=== PATIENT | female | born 2000 | race Caucasian/White ===

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

== ENCOUNTER → 2020-04-15 | Emergency (ER) | payer SELFPAY ==
[~2020-04-15] MED LIST: BENZOCAINE/MENTHOL LOZNGE 18'S BOX. PO PRN; LIDOCAINE 2% VISCOUS 15 ML SOLUTION. ONE; LORA-254 PO; LORA0.5T PO
--- NOTE | 2020-04-15 15:47 | RAD ---
EXAM: Ultrasound OB Greater than 14 weeks INDICATION: Cramping. No bleeding. TECHNIQUE: Real-time obstetrical ultrasound was performed with permanent freeze-frame documentation. COMPARISON: None. FINDINGS: POSITION: Breech HEART RATE: 162 bpm KELBY: Normal PLACENTA: Total previa. CERVICAL LENGTH: 3.2 cm MATERNAL UTERUS: Unremarkable. MATERNAL ADNEXA: Unremarkable. AGE/DATES: Gestational Age by LMP: 16 weeks 3 days Gestation Age by US: 15 weeks 0 days EDC by LMP: 09/27/2020 EDC by US: 10/07/2020 WEIGHT: 106 grams PERCENTILE WEIGHT: This is at the approximate 5th percentile BIOMETRIC PARAMETERS: BPD: 2.9 cm corresponding with 15 weeks 1 day HC: 11.0 cm corresponding with 15 weeks 2 days AC: 8.5 cm corresponding with 14 weeks 5 days FL: 1.6 cm corresponding with 14 weeks 4 days IMPRESSION: Normal OB ultrasound demonstrating a single viable fetus in breech position with total placenta previ a. Estimated gestational age of 15 weeks 0 days and EDC of 10/07/2020. Discussed with Dr. Aguayo by telephone at 8:34 AM on 04/15/2020 Electronically signed by: Avis Saunders MD (04/15/2020 3:45 PM) [id number]
--- NOTE | 2020-04-15 20:07 | PHYS DOC ---
Past History Past Medical History: Anxiety, Depression, Fibromyalgia Past Surgical History: Tonsillectomy Smoking: Less than 1pk/day Alcohol Use: None Drug Use: Marijuana General Adult EDM: Chief Complaint: DENTAL PROBLEM HPI: HPI: Patient is a [age] year old [sex] who presents with [] Current Medications: Current Meds: Current Medications Medications (Trade) Dose Ordered Sig/[facility] Start Time Stop Time Status Last Admin Dose Admin Lidocaine HCl (Viscous Lidocaine) 15 ml STK-MED ONCE 04/15/20 09:03 04/15/20 09:04 DC Throat Lozenges (Cepacol Sore Throat Lozenge) 1 peg PRN Q2HR PRN 04/15/20 09:30 Allergies: Allergies: Allergies Coded Allergies Type Severity Reaction Last Updated Verified No Known Drug Allergies 08/15/17 No Current Patient Data: Labs: Laboratory Tests Test 04/15/20 17:38 Prothrombin Time 10.0 SEC (9.4-11.4) Prothrombin Time INR 1.0 (0.9-1.1) Activated Partial Thromboplast Time 25 SEC (23-33) EKG: EKG: [] Radiology/Procedures: Radiology/Procedures: [] Heart Score: Risk Factors: Risk Factors: DM, Current or recent (<one month) smoker, HTN, HLP, family history of CAD, obesity. Risk Scores: Score 0 - 3: 2.5% MACE over next 6 weeks - Discharge Home Score 4 - 6: 20.3% MACE over next 6 weeks - Admit for Clinical Observation Score 7 - 10: 72.7% MACE over next 6 weeks - Early Invasive Strategies Course & Med Decision Making: Course & Med Decision Making Pertinent Labs and Imaging studies reviewed. (See chart for details) Due to [employer] downtime and hospital policy, please see paper documentation regarding patients' emergency department visit. This includes triage/nursing /physician documentation and any associated labs, imaging studies, vital signs, medications, disposition, discharge instructions and prescriptions, if applicable. Dulce Disclaimer: Dulce Disclaimer: This electronic medical record was generated, in whole or in part, using a voice recognition dictation system. Departure Departure: Impression: Primary Impression: UTI (urinary tract infection) Additional Impression: Iron deficiency anemia Disposition: DC HOME SELF CARE/HOMELESS Condition: STABLE Referrals: PCP,KEN (PCP) ADRIA CARVAJAL DO Apr 15, 2020 20:07
[2020-04-15 20:20] LABS: BACTERIA,URINE FEW /HPF (0-FEW); BILIRUBIN,URINE NEG (NEG); CLARITY,URINE HAZY; COLOR,URINE YELLOW; GLUCOSE,URINE NEG (NEG); NITRITE,URINE NEG (NEG); UROBILINOGEN,URINE 0.2 mg/dL (0.2 mg/dL)
[2020-04-15 20:21] LABS: SQUAMOUS EPITHELIAL CELL,UR MANY /LPF
[2020-04-15 20:25] LABS: CALCIUM 9.3 mg/dL (8.5-10.1); CREATININE 0.6 mg/dL (0.6-1.0); GFR 127.5; POTASSIUM 3.6 mmol/L (3.5-5.1)
[2020-04-16 01:51] LABS: RED BLOOD COUNT 4.44 x10^6/uL (3.50-5.40); WHITE BLOOD COUNT 8.9 x10^3/uL (4.0-11.0)
[2020-04-16 01:52] LABS: BASO % 0 % (0-3); EOS # 0.1 x10^3/uL (0.0-0.7); EOS % 1 % (0-3); HEMATOCRIT 34.3 % (36.0-47.0); HEMOGLOBIN 11.1 g/dL (12.0-15.5); LYMPH # 1.7 x10^3/uL (1.0-4.8); LYMPH % 19 % (24-48); MEAN CORPUSCULAR HEMOGLOBIN 25 pg (25-35); MEAN CORPUSCULAR HGB CONC 32 g/dL (31-37); MEAN CORPUSCULAR VOLUME 77 fL (79-100); MONO # 0.6 x10^3/uL (0.0-1.1); MONO % 7 % (0-9); NEUT # 6.6 x10^3uL (1.8-7.7); NEUT % 73 % (31-73); PLATELET COUNT 246 x10^3/uL (140-400); RED CELL DISTRIBUTION WIDTH 18.7 % (11.5-14.5)
== END ==
LOC: ER 07:05
DX: O23.42 Unspecified infection of urinary tract in pregnancy, second trimester (principal); O99.612 Diseases of the digestive system complicating pregnancy, second trimester; O99.012 Anemia complicating pregnancy, second trimester; M79.7 Fibromyalgia; O99.332 Smoking (tobacco) complicating pregnancy, second trimester; Z3A.15 15 weeks gestation of pregnancy
CPT/HCPCS: 36415; 76815; 80048; 81001; 84702; 85025; 85610; 85730; 86901; 99284

== ENCOUNTER 2020-06-18 04:51 | Emergency (ER) | payer OTHER ==
[~2020-06-18] VITALS: Ht 162.6 cm; Wt 130.9 kg
[~2020-06-18 04:51] MED LIST changes: -BENZOCAINE/MENTHOL LOZNGE 18'S BOX. PO PRN; -LIDOCAINE 2% VISCOUS 15 ML SOLUTION. ONE
[2020-06-18 05:19] LABS: BASO % 0 % (0-3); EOS # 0.1 x10^3/uL (0.0-0.7); EOS % 1 % (0-3); HEMOGLOBIN 10.1 g/dL (12.0-15.5); LYMPH # 1.8 x10^3/uL (1.0-4.8); LYMPH % 17 % (24-48); MEAN CORPUSCULAR HEMOGLOBIN 26 pg (25-35); MEAN CORPUSCULAR HGB CONC 33 g/dL (31-37); MEAN CORPUSCULAR VOLUME 81 fL (79-100); MONO % 9 % (0-9); NEUT % 73 % (31-73); PLATELET COUNT 238 x10^3/uL (140-400); RED BLOOD COUNT 3.85 x10^6/uL (3.50-5.40); RED CELL DISTRIBUTION WIDTH 17.8 % (11.5-14.5); WHITE BLOOD COUNT 10.8 x10^3/uL (4.0-11.0)
[2020-06-18 05:24] LABS: CALCIUM 9.2 mg/dL (8.5-10.1); CREATININE 0.7 mg/dL (0.6-1.0); GFR 105.6; POTASSIUM 3.7 mmol/L (3.5-5.1)
--- NOTE | 2020-06-18 05:38 | PHYS DOC ---
Past History Past Medical History: Other Additional Past Medical Histor: HTN AND TACHY RELATED TO ,BEING TESTED FOR GENSTATION DIABETES (NEIDA MARTINEZ MD) Past Surgical History: , Tonsillectomy, Other Additional Past Surgical Histo: TM TUBES, ADNOIDECTOMY, NASAL (NEIDA MARTINEZ MD) Smoking: Less than 1pk/day Alcohol Use: None Drug Use: Marijuana (NEIDA MARTINEZ MD) Adult General Chief Complaint Chief Complaint: ABDOMINAL PAIN IN HPI HPI Patient is a 20-year-old female, , at 23 weeks 4 days who presents with concern for possible water breaking. States she woke up a few hours ago with what underwear. Denies contractions but states she is having some low back discomfort but that has been chronic. Denies any recent travel, trauma, illnesses, fevers, chest pain, shortness of breath, abdominal pain, nausea, vomiting, dysuria, hematuria, diarrhea, vaginal bleeding, or pain. States she does have an OB at [facility] and has had normal ultrasounds. (NEIDA MARTINEZ MD) Review of Systems Review of Systems Review of systems otherwise unremarkable except noted in HPI (NEIDA MARTINEZ MD) Allergies Allergies Allergies Coded Allergies Type Severity Reaction Last Updated Verified No Known Drug Allergies 08/15/17 No (NEIDA MARTINEZ MD) Physical Exam Physical Exam Constitutional: Well developed, well nourished, no acute distress, non-toxic appearance. [] HENT: Normocephalic, atraumatic, bilateral external ears normal, oropharynx moist, no oral exudates, nose normal. [] Eyes: conjunctiva normal, no discharge. [] Neck: Normal range of motion, Cardiovascular: Sinus tachycardia. heart tones at 144. Lungs & Thorax: Bilateral breath sounds clear to auscultation [] Abdomen: soft, no tenderness, no masses, no pulsatile masses. : Cervical os closed with no apparent fluid or blood in the vaginal vault. No tenderness. Nitrazine test with a pH of 4.5 not consistent with amniotic fluid. [] Skin: Warm, dry, no erythema, no rash. [] Back: no CVA tenderness. [] Extremities: No tenderness, ROM intact, no edema. [] Neurologic: Alert and oriented X 3, normal motor function, normal sensory function, no focal deficits noted. [] Psychologic: Affect normal, judgement normal, mood normal. [] (NEIDA MARTINEZ MD) Current Patient Data Vital Signs Vital Signs Date Time Temp Pulse Resp B/P (MAP) Pulse Ox O2 Delivery O2 Flow Rate FiO2 06/18/20 04:51 99.6 108 20 147/94 (111) 99 Room Air Lab Results Laboratory Tests Test 06/18/20 05:00 White Blood Count 10.8 x10^3/uL (4.0-11.0) Red Blood Count 3.85 x10^6/uL (3.50-5.40) Hemoglobin 10.1 g/dL (12.0-15.5) L Hematocrit 31.0 % (36.0-47.0) L Mean Corpuscular Volume 81 fL (79-100) Mean Corpuscular Hemoglobin 26 pg (25-35) Mean Corpuscular Hemoglobin Concent 33 g/dL (31-37) Red Cell Distribution Width 17.8 % (11.5-14.5) H Platelet Count 238 x10^3/uL (140-400) Neutrophils (%) (Auto) 73 % (31-73) Lymphocytes (%) (Auto) 17 % (24-48) L Monocytes (%) (Auto) 9 % (0-9) Eosinophils (%) (Auto) 1 % (0-3) Basophils (%) (Auto) 0 % (0-3) Neutrophils # (Auto) 8.0 x10^3uL (1.8-7.7) H Lymphocytes # (Auto) 1.8 x10^3/uL (1.0-4.8) Monocytes # (Auto) 1.0 x10^3/uL (0.0-1.1) Eosinophils # (Auto) 0.1 x10^3/uL (0.0-0.7) Basophils # (Auto) 0.0 x10^3/uL (0.0-0.2) Sodium Level 141 mmol/L (136-145) Potassium Level 3.7 mmol/L (3.5-5.1) Chloride Level 106 mmol/L (98-107) Carbon Dioxide Level 22 mmol/L (21-32) Anion Gap 13 (6-14) Blood Urea Nitrogen 8 mg/dL (7-20) Creatinine 0.7 mg/dL (0.6-1.0) Estimated GFR (Cockcroft-Gault) 105.6 Glucose Level 107 mg/dL (70-99) H Calcium Level 9.2 mg/dL (8.5-10.1) (NEIDA MARTINEZ MD) EKG EKG [] (NEIDA MARTINEZ MD) Radiology/Procedures Radiology/Procedures [] (NEIDA MARTINEZ MD) Heart Score C/O Chest Pain: No Risk Factors: Risk Factors: DM, Current or recent (<one month) smoker, HTN, HLP, family histo ry of CAD, obesity. Risk Scores: Risk Factors: DM, Current or recent (<one month) smoker, HTN, HLP, family history of CAD, obesity. (NEIDA MARTINEZ MD) Course & Med Decision Making Course & Med Decision Making Patient is a 20-year-old female, at 23 weeks 4 days who presents with a chief complaint of concern for water breakage. Vital signs notable for sinus tachycardia. Physical exam noted above. Nitrazine test not consistent for amniotic fluid with pH at 4.5. Cervical os closed with no fluid or blood in the vault. (NEIDA MARTINEZ MD) Course & Med Decision Making The patient's labs are unremarkable. She does have a mild anemia but her values are similar to previous. Her urinalysis is negative for infection. I have given the patient a liter of normal saline. I believe she is stable for discharge at this time. I stressed that she should follow-up with her [facility] today. (PURNIMA SHERWOOD DO) Dragon Disclaimer Dragon Disclaimer This electronic medical record was generated, in whole or in part, using a voice recognition dictation system. (NEIDA MARTINEZ MD) Departure Departure: Impression: Primary Impression: Additional Impression: Vaginal discharge Disposition: HOME / SELF CARE / HOMELESS Condition: STABLE Referrals: PCP,NO (PCP) Patient Instructions: Abdominal Pain During , [id number] Problem Qualifiers NEIDA MARTINEZ MD Jun 18, 2020 05:38 PURNIMA SHERWOOD DO Jun 18, 2020 07:19
[2020-06-18] MEDS ORDERED: ACETAMINOPHEN 500 MG TABLET PO ONE (06:00)
[2020-06-18] MEDS ORDERED: diphenhydrAMINE HCL 25 MG CAPSULE PO ONE (06:00)
[2020-06-18] MEDS ORDERED: IV NORMAL SALINE 1,000ML 1,000 ML IV ONE (07:00)
[2020-06-18 07:07] LABS: BILIRUBIN,URINE NEG (NEG); CLARITY,URINE TURBID; COLOR,URINE YELLOW; GLUCOSE,URINE NEG (NEG)
[2020-06-18 07:08] LABS: AMORPHOUS SEDIMENT,UR PRESENT /HPF; BACTERIA,URINE 0 /HPF (0-FEW); NITRITE,URINE NEG (NEG); SQUAMOUS EPITHELIAL CELL,UR MANY /LPF; UROBILINOGEN,URINE 0.2 mg/dL (0.2 mg/dL)
[2020-06-18 07:40] VITALS: BP 132/70
== END 2020-06-18 07:45 | disposition home or self-care (01) ==
LOC: ER 04:51
DX: O46.92 Antepartum hemorrhage, unspecified, second trimester (principal); O99.332 Smoking (tobacco) complicating pregnancy, second trimester; Z3A.23 23 weeks gestation of pregnancy
CPT/HCPCS: 36415; 80048; 81001; 85025; 99283; J7030; Q0163